=== PATIENT | male | born 1980 | race Two or more races ===

== ENCOUNTER 2016-10-27 06:01 | Day surgery (SDC) | payer OTHER ==
[2016-10-12 12:59] VITALS: BMI 33.3
[2016-10-27] MEDS ORDERED: ePHEDrine SULFATE 50 MG/1 ML AMPULE ONE (07:11)
[2016-10-27] MEDS ORDERED: PROPOFOL 20 ML ONE ×2 (07:11)
[2016-10-27] MEDS ORDERED: SUCCINYLCHOLINE CHLORIDE 200 MG/10 ML VIAL ONE (07:11)
[2016-10-27] MEDS ORDERED: MIDAZOLAM HCL 2 MG/2 ML SINGLE DOSE VIAL ONE ×2 (07:12→07:54)
[2016-10-27] MEDS ORDERED: ceFAZolin SODIUM 1 GM VIAL ONE (07:12)
[2016-10-27] MEDS ORDERED: BUPIVACAINE HCL/PF 0.5% (5MG/ML) 10 ML VIAL ONE (07:30)
[2016-10-27] MEDS ORDERED: LIDOCAINE HCL 2% (20ML MULTI-DOSE VIAL) NR ONE (07:30)
[2016-10-27] MEDS ORDERED: KETAMINE HCL 200 MG/20 ML VIAL ONE (07:48)
[2016-10-27] MEDS ORDERED: LIDOCAINE HCL 2% (50ML VIAL) INF ONE (07:50)
[2016-10-27] MEDS ORDERED: BUPIVACAINE HCL/PF 0.5% (5MG/ML) 10 ML VIAL IJ ONE (07:50)
[2016-10-27] MEDS ORDERED: LIDOCAINE HCL 2% JELLY (5 ML/TUBE) ONE (07:58)
[2016-10-27] MEDS ORDERED: KETOROLAC TROMETHAMINE 30 MG/1 ML VIAL ONE (08:10)
[2016-10-27] MEDS ORDERED: DEXAMETHASONE SOD PHOSPHATE 4 MG/1 ML VIAL ONE (08:10)
[2016-10-27] MEDS ORDERED: ONDANSETRON 4 MG/2 ML VIAL ONE ×2 (08:10→09:38)
[2016-10-27] MEDS ORDERED: LABETALOL HCL 5 MG/1 ML (100MG/20 ML VIAL) ONE (09:15)
[2016-10-27] MEDS ORDERED: ACETAMINOPHEN WITH CODEINE 300MG/30MG TABLET PO PRN (09:25)
[2016-10-27 10:43] VITALS: TEMP 97.4
[2016-10-27 10:46] VITALS: BP 143/90; PULSE 66
--- NOTE | 2016-10-28 10:43 | OP ---
DATE OF OPERATION: DATE OF DICTATION: 10/27/2016 PREOPERATIVE DIAGNOSIS: Hallux valgus, left foot. POSTOPERATIVE DIAGNOSIS: Hallux valgus, left foot. OPERATIVE PROCEDURE: Pritesh bunionectomy, left foot, with K-wire fixation. Patient was taken to the operating room, placed on the operating table in the supine position. The usual aseptic prepping and draping were performed. After local anesthesia was initiated, final prepping and draping was performed. The patient's left leg was elevated for 3 full minutes and the tourniquet on the ankle was inflated to 250 mmHg and the extremity was lowered to the operating table. A 6-cm linear incision was effectively placed dorsally over the 1st metatarsophalangeal joint medial to the extensor tendon. All vital structures were identified and retracted or coagulated. The capsular incision was then made down to bone and dissection was performed sharp and blunt over the 1st metatarsal head medial and laterally. At this point, using an osteotome the medial eminence was excised. At this point, utilizing an oscillating saw a chevron V-shaped cut was performed on the 1st metatarsal head. The capital fragment was shifted laterally and a 0.062 Lilo wire was utilized for fixation. The area was flushed with copious amounts of sterile saline solution. The portion of bone that was the medial capital fragment was then excised with the saw and flushed again. Capsule was closed with No. 2-0 Vicryl, subcuticular tissue and subcutaneous tissue were closed with No. 3-0 and 4-0 Vicryl, and skin was reapproximated and closed with No. 4-0 nylon. A dry sterile dressing was applied to the operative foot. The patient tolerated the operative procedure well. All vital structures were intact at bandaging. The capillary filling time was noted to be instantaneous. ENEDELIA SANCHEZ/[id number]
--- NOTE | 2016-11-01 14:20 | PATH ---
Surgical Pathology Report Patient Name: JOIE HOLT [facility]. Rec. #: [id number] /Age/Gender: 1980 (Age: 36) / M Account: [id number] Location: [facility] AMBULATORY Taken: 10/27/2016 Received: 10/27/2016 Reported: 11/01/2016 Physicians: Zachary Flores Specimen(s) Received BONE OF FIRST METATARSAL LEFT FOOT Clinical History Left bunion (hallux valgus) of left foot Final Diagnosis BONE OF FIRST METATARSAL, LEFT FOOT, EXCISION: CARTILAGE, BONE AND FIBROCOLLAGENOUS TISSUE. Electronically Signed Shelby Huff M.D. Gross Description Received in formalin labeled "bone of first metatarsal left foot," is a 2.0 x 1.5 x 0.3 cm aggregate of dawn bone and soft tissue fragments. The larger portions of bone are serially sectioned and the specimen is entirely submitted in one cassette, following decalcification. 10/30/201610/30/2016
== END 2016-10-27 10:45 | disposition home or self-care (01) ==
LOC: FASU 06:01
PROVIDERS: ATTEND Podiatrist
PROC: 0QSP0ZZ Reposition Left Metatarsal, Open Approach (ICD-10-PCS; principal; 2016-10-27 07:56)
DX: M20.12 Hallux valgus (acquired), left foot (principal)
CPT/HCPCS: 73630-TC-LT; 88304-TC; 88311-TC; 94760

== ENCOUNTER 2017-01-11 11:20 | Emergency (ER) | payer OTHER ==
[2017-01-11 11:30] VITALS: BP 135/90; PULSE 79; TEMP 98.8; BMI 36.0
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
[2017-01-11 13:13] LABS: PH,URINE 7.5 (4.5-8); URINE APPEARANCE Clear; URINE BILIRUBIN Negative (NEGATIVE); URINE BLOOD Negative (NEGATIVE); URINE GLUCOSE (UA) Negative (NEGATIVE); URINE KETONE Trace (NEGATIVE); URINE LEUK ESTERASE Negative (NEGATIVE); URINE NITRITE Negative (NEGATIVE); URINE PROTEIN Trace (NEGATIVE); URINE UROBILINOGEN 0.2 (0.2-1.0)
[2017-01-11 13:14] LABS: URINE COLOR YELLOW
== END 2017-01-11 15:39 | disposition home or self-care (01) ==
LOC: FER 11:20
DX: M54.5 Low back pain (principal); S70.02XA Contusion of left hip, initial encounter; S80.02XA Contusion of left knee, initial encounter; W10.2XXA Fall (on)(from) incline, initial encounter; Y93.89 Activity, other specified; Y92.39 Other specified sports and athletic area as the place of occurrence of the external cause; F17.210 Nicotine dependence, cigarettes, uncomplicated
CPT/HCPCS: 72100-TC; 73523-TC; 73562-TC-LT; 81003; 99284-25